=== PATIENT | female | born 1970 | race Caucasian/White ===

== ENCOUNTER 2017-07-29 17:39 | Emergency (ER) | payer BC ==
[2017-07-29 18:56] VITALS: BP 149/85
--- NOTE | 2017-07-29 19:34 | UC ---
Respiratory Complaint HPI - HPI Summary HPI Summary: Pt c/o cough, wheezing in upper airway X 1 week. Pt has history orf asthma and is a current every day smoker. 10 cigarettes per day. - History of Current Complaint Chief Complaint: UCGeneralIllness Stated Complaint: COUGH Time Seen by Provider: 07/29/17 19:23 Hx Obtained From: Patient Hx Last Menstrual Period: 07/06/17 ?: No Onset/Duration: Gradual Onset, Lasting Days - 7, Still Present, Worse Since - onset Timing: Intermittent Episodes Severity Initially: Mild Severity Currently: Mild Character: Cough: Nonproductive Aggravating Factors: Allergens, Exertion, Deep Breaths, Recumbent Position Alleviating Factors: Nothing Associated Signs And Symptoms: Positive: Wheezing, URI, Nasal Congestion - Risk Factors Pulmonary Embolism Risk Factors: Smoking Cardiac Risk Factors: Smoking Tuberculosis Risk Factors: Smoking - Allergies/Home Medications Allergies/Adverse Reactions: Allergies Allergy/AdvReac Type Severity Reaction Status Date / Time Sulfa Antibiotics Allergy Intermediate Rash Verified 07/29/17 18:56 Home Medications: Home Medications Dextromethorphan-Phenylephrine [Vicks Dayquil Cold & Flu 10-5-325 mg/15Ml] 30 ml PO Q4H PRN 07/29/17 [History Confirmed 07/29/17] Pseudoephedrine HCl [Sudafed Congestion] 30 mg PO Q4H PRN 07/29/17 [History Confirmed 07/29/17] PMH/Surg Hx/FS Hx/Imm Hx Previously Healthy: Yes - Surgical History Surgical History: Yes Surgery Procedure, Year, and Place: C-Sections, 1995 1997, [facility] - Family History Known Family History: Positive: Cardiac Disease - Social History Occupation: Employed Full-time Lives: With Family Alcohol Use: Occasionally Substance Use Type: None Smoking Status (MU): Current Every Day Smoker Type: Cigarettes Amount Used/How Often: HALF TO 3/4 PPD Length of Time of Smoking/Using Tobacco: 16 Years Have You Smoked in the Last Year: Yes Review of Systems Constitutional: Fatigue Skin: Negative Eyes: Negative ENT: Negative Respiratory: Shortness Of Breath - with exertion, Cough Cardiovascular: Negative Gastrointestinal: Negative Genitourinary: Negative Motor: Negative Neurovascular: Negative Musculoskeletal: Negative Neurological: Negative Psychological: Negative Is Patient Immunocompromised?: No All Other Systems Reviewed And Are Negative: Yes Physical Exam Triage Information Reviewed: Yes Appearance: Well-Appearing Vital Signs: Initial Vital Signs Temp 97.9 F 07/29/17 18:49 Pulse 78 07/29/17 18:49 Resp 20 07/29/17 18:49 BP 149/85 07/29/17 18:49 Pulse Ox 97 07/29/17 18:49 Vital Signs Reviewed: Yes Eye Exam: Normal ENT Exam: Other ENT: Positive: Nasal congestion Dental Exam: Normal Neck exam: Normal Respiratory Exam: Other Respiratory: Positive: Wheezing Cardiovascular Exam: Normal Musculoskeletal Exam: Normal Neurological Exam: Normal Psychological Exam: Normal Skin Exam: Normal UC Diagnostic Evaluation - Laboratory O2 Sat by Pulse Oximetry: 97 Respiratory Course/Dx - Differential Dx/Diagnosis Differential Diagnosis/HQI/PQRI: Bronchitis, Influenza, Pulmonary Embolism, Sinusitis Provider Diagnoses: bronchitis Discharge - Discharge Plan Condition: Stable Disposition: HOME Prescriptions: Azithromycin TAB* [Zithromax TAB (Z-LISA) 250 mg #6 tabs] 250 mg PO DAILY #4 tab Benzonatate CAP* [Tessalon 100 MG CAP*] 100 mg PO Q8H PRN #30 cap PRN Reason: Cough predniSONE TAB* [Deltasone TAB*] 30 mg PO DAILY #12 tab Patient Education Materials: Acute Bronchitis (ED) Referrals: Sohail Acosta [Primary Care Provider] - If Needed
[2017-07-29] MEDS ORDERED: Azithromycin TAB* 250 MG PO ONE (19:36)
[2017-07-29] MEDS ORDERED: Benzonatate CAP* 100 MG PO ONE (19:36)
== END 2017-07-29 19:44 | disposition home or self-care (01) ==
LOC: UCCORT 17:39
DX: J40 Bronchitis, not specified as acute or chronic (principal); Z88.2 Allergy status to sulfonamides; F17.210 Nicotine dependence, cigarettes, uncomplicated
CPT/HCPCS: 99202; A9270-GY; G0463

== ENCOUNTER 2018-07-14 08:24 | Emergency (ER) | payer BC ==
[2018-07-14 08:41] VITALS: BP 133/87
--- NOTE | 2018-07-14 09:42 | UC ---
Complaint Female HPI - HPI Summary HPI Summary: Pt presents c/o gradual onset of urinary frequency, urgency, and dysuria and pelvic pressure X 4 days. - History Of Current Complaint Chief Complaint: UCGU Stated Complaint: URINARY Time Seen by Provider: 07/14/18 08:43 Hx Obtained From: Patient Hx Last Menstrual Period: 06/30/18 ?: No Onset/Duration: Gradual Onset, Lasting Days, Still Present Timing: Constant Severity Initially: Mild Severity Currently: Mild Pain Intensity: 2 Pain Scale Used: 0-10 Numeric Character: Dull, Burning, Cramping Aggravating Factor(s): Urination Alleviating Factor(s): Nothing Associated Signs And Symptoms: Positive: Negative - Risk Factors Ectopic Risk Factor: Negative Ovarian Torsion Risk Factor: Negative - Allergies/Home Medications Allergies/Adverse Reactions: Allergies Allergy/AdvReac Type Severity Reaction Status Date / Time Sulfa (Sulfonamide Allergy Hives Verified 07/14/18 08:51 Antibiotics) Home Medications: Home Medications Pumpkin Seed Extract/Soy Germ [Azo Bladder Control Capsule] 2 cap PO ONCE PRN [History Confirmed 07/14/18] PMH/Surg Hx/FS Hx/Imm Hx Previously Healthy: Yes GI/ History: Kidney Stones - Surgical History Surgical History: Yes Surgery Procedure, Year, and Place: C-Sections, 1995 1997, [facility] - Family History Known Family History: Positive: Cardiac Disease - Social History Occupation: Employed Full-time Lives: With Family Alcohol Use: Occasionally Substance Use Type: None Smoking Status (MU): Former Smoker Type: Cigarettes Amount Used/How Often: HALF TO 3/4 PPD Length of Time of Smoking/Using Tobacco: 16 Years Have You Smoked in the Last Year: No When Did the Patient Quit Smoking/Using Tobacco: 09/20 Review of Systems All Other Systems Reviewed And Are Negative: Yes Constitutional: Positive: Negative Skin: Positive: Negative Eyes: Positive: Negative ENT: Positive: Negative Respiratory: Positive: Negative Cardiovascular: Positive: Negative Gastrointestinal: Positive: Abdominal Pain Genitourinary: Positive: Dysuria, Frequency, Urgency Motor: Positive: Negative Neurovascular: Positive: Negative Musculoskeletal: Positive: Negative Neurological: Positive: Negative Psychological: Positive: Negative Is Patient Immunocompromised?: No Physical Exam Triage Information Reviewed: Yes Appearance: Well-Appearing Vital Signs: Initial Vital Signs Temp 98.2 F 11/11/18 08:33 Pulse 70 07/14/18 08:33 Resp 16 07/14/18 08:33 BP 133/87 07/14/18 08:33 Pulse Ox 100 07/14/18 08:33 Vital Signs Reviewed: Yes Eye Exam: Normal ENT Exam: Normal Dental Exam: Normal Neck exam: Normal Respiratory Exam: Normal Respiratory: Positive: Normal breath sounds Cardiovascular Exam: Normal Abdominal Exam: Normal Abdomen Description: Positive: Nontender Musculoskeletal Exam: Normal Neurological Exam: Normal Psychological Exam: Normal Skin Exam: Normal Complaint Female Dx - Differential Dx/Diagnosis Differential Diagnosis/HQI/PQRI: Urinary Tract Infection, Other - kidney stone Provider Diagnoses: UTI Discharge - Sign-Out/Discharge Documenting (check all that apply): Patient Departure All imaging exams completed and their final reports reviewed: No Studies - Discharge Plan Condition: Stable Disposition: HOME Prescriptions: Cephalexin CAP* [Keflex 500 CAP*] 500 mg PO Q8H #21 cap Phenazopyridine TAB* [Pyridium 100 mg TAB*] 100 mg PO Q8H #6 tab Patient Education Materials: Urinary Tract Infection in Women (ED) Referrals: Sohail Acosta [Primary Care Provider] - If Needed - Billing Disposition and Condition Condition: STABLE Disposition: Home - Attestation Statements Provider Attestation: Per institutional requirements, I have reviewed the chart, however, I was not consulted specifically or made aware of this patient by the midlevel provider. I did not personally evaluate, interact with , or disposition this patient.
== END 2018-07-14 09:03 | disposition home or self-care (01) ==
LOC: UCCORT 08:24
DX: N39.0 Urinary tract infection, site not specified (principal); Z88.1 Allergy status to other antibiotic agents
CPT/HCPCS: 81003; 87086; 99212; G0463

== ENCOUNTER 2019-09-10 07:18 | Emergency (ER) | payer BC ==
[2019-09-10 07:30] VITALS: BP 137/81
--- NOTE | 2019-09-10 08:10 | UC ---
Back Pain HPI - HPI Summary HPI Summary: left upper back pain x 4 days pain is severe 7 out of 10 worse with movement of left arm / shoulder better with rest, and ibuprofen , no radiation of pain , no numbness or tingling no cough , no sob , no known injury - History of Current Complaint Chief Complaint: UCUpperExtremity Stated Complaint: UPPER LEFT SIDE BACK PAIN Time Seen by Provider: 09/10/19 07:48 Hx Obtained From: Patient Hx Last Menstrual Period: 08/19/19 ?: No Onset/Duration: Gradual Onset, Lasting Days - 4, Still Present Timing: Constant Severity Initially: Moderate Severity Currently: Moderate Pain Intensity: 7 Back Pain: Is Discrete @ - left upper back Character: Aching Aggravating Factor(s): Movement, Lifting, Cough Alleviating Factor(s): Rest, OTC Meds Associated Signs And Symptoms: Negative: Swelling, Redness, Bruising, Fever, Weakness, Numbness, Flank Pain - Allergies/Home Medications Allergies/Adverse Reactions: Allergies Allergy/AdvReac Type Severity Reaction Status Date / Time Sulfa (Sulfonamide Allergy Hives Verified 09/10/19 07:24 Antibiotics) Home Medications: Home Medications Ibuprofen TAB* [Advil TAB*] 2 tab PO ONCE 09/10/19 [History Confirmed 09/10/19] PMH/Surg Hx/FS Hx/Imm Hx - Additional Past Medical History Additional PMH: Anxiety Depression kidney stones Respiratory History: Asthma - Surgical History Surgical History: Yes Surgery Procedure, Year, and Place: C-Sections, 1995 1997, [facility] - Family History Known Family History: Positive: Cardiac Disease - Social History Alcohol Use: Occasionally Substance Use Type: None Smoking Status (MU): Former Smoker Type: Cigarettes Amount Used/How Often: HALF TO 3/4 PPD Length of Time of Smoking/Using Tobacco: 16 Years Have You Smoked in the Last Year: No When Did the Patient Quit Smoking/Using Tobacco: 09/20 Review of Systems All Other Systems Reviewed And Are Negative: Yes Is Patient Immunocompromised?: No Physical Exam Triage Information Reviewed: Yes Appearance: Well-Appearing, Well-Nourished, Pain Distress Vital Signs: Initial Vital Signs Temp 98.2 F 09/10/19 07:25 Pulse 85 09/10/19 07:25 Resp 17 09/10/19 07:25 BP 137/81 09/10/19 07:25 Pulse Ox 98 09/10/19 07:25 Vital Signs Reviewed: Yes Eye Exam: Normal Eyes: Positive: Conjunctiva Clear ENT: Positive: Normal ENT inspection, Hearing grossly normal, Pharynx normal Dental Exam: Normal Neck: Positive: Supple, Nontender, No Lymphadenopathy Respiratory: Positive: Chest non-tender, Lungs clear, Normal breath sounds Cardiovascular: Positive: RRR, No Murmur, Pulses Normal Abdominal Exam: Normal Musculoskeletal: Positive: Other: - upper back : no swelling, no erythema, + tenderness left upper back / inner part of left scapula , pain with ROM / twisting , Back Pain Course/Dx - Differential Dx/Diagnosis Provider Diagnosis: Upper back pain on left side Discharge ED - Sign-Out/Discharge Documenting (check all that apply): Patient Departure All imaging exams completed and their final reports reviewed: No Studies - Discharge Plan Condition: Stable Disposition: HOME Prescriptions: Cyclobenzaprine TAB* [Flexeril 10 MG TAB*] 10 mg PO BID #20 tab Naproxen [Naproxen 500 mg tab] 500 mg PO BID #20 tablet. Patient Education Materials: Back Pain (ED) Forms: *Work Release Referrals: Soahil Acosta [Primary Care Provider] - 7 Days - Billing Disposition and Condition Condition: STABLE Disposition: Home
== END 2019-09-10 08:07 | disposition home or self-care (01) ==
LOC: UCCORT 07:18
DX: M54.89 Other dorsalgia (principal); J45.909 Unspecified asthma, uncomplicated; Z88.2 Allergy status to sulfonamides; Z87.891 Personal history of nicotine dependence; Z87.442 Personal history of urinary calculi
CPT/HCPCS: 99212; G0463